=== PATIENT | male | born 1980 | race Caucasian/White ===

== ENCOUNTER → 2019-07-28 | Day surgery (SDC) | payer BC ==
[~2019-07-28] MED LIST: ALEVE220 MG PO; AZO BLADDER CO300 MG PO; B&O 60MG R/S 60 MG SUPP PR ONE; CEFTRIAXONE SOD 1 GM/NS 50 ML 50 ML IV ONE; DEXAMETHASONE SOD PHOS INJ 4 MG/ML VIAL ONE; FENTANYL CITRATE/PF 100MCG/2 ML INJ ONE; FISH OIL 1,0001 EAC2 PO; IOPAMIDOL 300MG/ML 50ML INFUS..BTL IV ONE; LIDOCAINE HCL 2% LOCAL INJ 5 ML SDV VIAL INJ ONE; LISINOPRIL10 MG PO; MIDAZOLAM HCL 2 MG/2 ML VIAL ONE; ONDANSETRON HCL INJ 2MG/ML 2ML 2 MG/ML VIAL ONE; OXYBUTYNIN CHLOR5 MG PO; PROPOFOL IV EMULSION 10 MG/ML 20 ML VIAL ONE; SEVOFLURANE INHAL SOLN 250 ML PEN BTL ONE
--- OUTSIDE RECORDS SUMMARY | 2019-07-28 13:42 | XMS REPORT ---
Author Author [facility] Address Unknown Phone Unavailable Care Team Providers Care Water Main Installer Helper Name Role Phone Unavailable Unavailable Problems This patient has no known problems. Allergies, Adverse Reactions, Alerts This patient has no known allergies or adverse reactions. Medications This patient has no known medications.
[2019-07-28 14:21] LABS: BASOPHILS # (AUTO) 0.1 (0.0-0.1); BASOPHILS % 0.6 % (0.0-1.0); EOSINOPHILS # (AUTO) 0.1 (0.0-0.4); EOSINOPHILS % 0.5 % (0.0-6.0); HEMATOCRIT 45.8 % (38.2-49.6); HEMOGLOBIN 14.9 g/dL (14.0-18.0); LYMPHOCYTES # (AUTO) 1.3 (1.0-3.2); LYMPHOCYTES % 13.1 % (18.0-39.1); MEAN CORPUSCULAR HEMOGLOBIN 27.8 pg (28-32); MEAN CORPUSCULAR HGB CONC 32.5 g/dL (31-35); MEAN CORPUSCULAR VOLUME 85.4 fL (81-99); MONOCYTES % 9.5 % (4.4-11.3); NEUTROPHILS # (AUTO) 7.6 (2.1-6.9); NEUTROPHILS % 75.5 % (38.7-80.0); PLATELET COUNT 238 x10e3/uL (140-360); RED BLOOD COUNT 5.36 x10e6/uL (4.3-5.7); RED CELL DISTRIBUTION WIDTH 13.3 % (11.7-14.4)
[2019-07-28 14:40] LABS: ALANINE AMINOTRANSFERASE 49 IU/L (0-55); ALBUMIN 4.5 g/dL (3.5-5.0); ALBUMIN/GLOBULIN RATIO 1.5 (0.8-2.0); ALKALINE PHOSPHATASE 88 IU/L (40-150); ANION GAP 12.2 mmol/L (8-16); BLOOD UREA NITROGEN 21 mg/dL (7-26); BUN/CREATININE RATIO 17 (6-25); CALCIUM 9.3 mg/dL (8.4-10.2); CARBON DIOXIDE 25 mmol/L (22-29); CHLORIDE 106 mmol/L (98-107); CREATININE, SERUM 1.21 mg/dL (0.72-1.25); EST GLOMERULAR FILTRATION RATE > 60 ML/MIN (60-); GLUCOSE 88 mg/dL (74-118); POTASSIUM 4.2 mmol/L (3.5-5.1); SODIUM 139 mmol/L (136-145)
[2019-07-28 18:25] VITALS: BP 138/84
--- NOTE | 2019-08-20 21:07 | Operative Report ---
DATE OF PROCEDURE: 07/28/2019 SURGEON: Prosper Drake MD PREOPERATIVE DIAGNOSES: 1. Right ureter ureterolithiasis. 2. Right hydronephrosis due to stone. 3. Renal colic. POSTOPERATIVE DIAGNOSES: 1. Right ureter ureterolithiasis. 2. Right hydronephrosis due to stone. 3. Renal colic. 4. Bladder lesion. OPERATIONS PERFORMED: 1. Cystourethroscopy with bilateral ureteral catheterization and retrograde ureteropyelography (separate procedure performed for the renal colic). 2. Interpretation of retrograde ureteropyelography. 3. Supervision of fluoroscopy, no radiologist present. 4. Cystourethroscopy with ureteral stone manipulation without extraction (separate procedure performed to push the ureteral stone into the renal pelvis for better ESWL results). 5. Urological services with supervision and interpretation for stone manipulation procedure. 6. Cystourethroscopy with insertion of right indwelling ureteral stent (separate procedure performed to relieve the hydronephrosis). 7. Cystourethroscopy with transurethral resection of small bladder lesion (separate procedure performed for the bladder lesion. ANESTHESIA: General. COMPLICATIONS: None. CLINICAL SUMMARY: Edmar Manjarrez is a 39-year-old man with obstructive uropathy. He was brought for the above procedures. He is aware of the risks of bleeding, infection, injury to adjacent structures, need for additional procedures, and elected to proceed. OPERATIVE PROCEDURE IN DETAIL: Informed consent was verified. Edmar Manjarrez was properly identified, taken to the operating room, placed on the cystoscopy table in supine position. Anesthesia was uneventfully begun. The patient was then carefully gently repositioned in dorsal lithotomy position. All pressure points well padded. His genitalia were prepared and draped in usual sterile fashion. The cystoscope sheath with the visual obturator in place was atraumatically inserted into the patient's urethra, it was guided down the unremarkable urethra through the prostate bed, which exhibited an elevated median bar. We entered the patient's bladder, where there was sand noted within the bladder. This sand was evacuated. There were no residual stones identified in the bladder after evacuation of the sand, but there was a small lesion lateral to the right ureteral orifice. Cold cup biopsy forceps were utilized to resect the lesion, the base of it was fulgurated with a Bugbee electrode. Ureteral catheter was used to cannulate each ureter and retrograde pyelograms were performed. Interpretation of retrograde ureteropyelography contrast was instilled in a retrograde fashion bilaterally. The left side was unremarkable. There were no tumors, no stones, no diverticula. The right side exhibited a proximal ureteral stone, that was mildly calcified that was visually obstructing. The ureteral catheter was brought up into the right ureter and guided to the level of the patient's stone, we gently tapped on the stone, this dislodged the stone into the renal pelvis. Guidewire was left in place. With cystoscopic fluoroscopic guidance, the right-sided indwelling ureteral stent was then placed to coil the patient's kidney as well as the patient's bladder. The retaining suture was cut short. The patient's bladder was drained and the cystoscope was withdrawn. A belladonna and opium suppository were placed revealing a 20 g prostate that is smooth, nonfluctuant without any nodules. The patient was then uneventfully reversed from anesthesia and taken to recovery room in stable condition. There were no complications to the procedure. The patient tolerated the procedure well. PLANS: Plans will be to return the patient to the operating room for a right ESWL. Prosper Drake MD [place]/LATRICIA /[id number]
== END | disposition home or self-care (01) ==
LOC: OR 13:40
PROVIDERS: ATTEND Urology
DX: N13.2 Hydronephrosis with renal and ureteral calculous obstruction (principal); N17.9 Acute kidney failure, unspecified; N32.9 Bladder disorder, unspecified; R35.1 Nocturia; R80.9 Proteinuria, unspecified; Q55.22 Retractile testis; I10 Essential (primary) hypertension; E66.9 Obesity, unspecified; Z68.34 Body mass index [BMI] 34.0-34.9, adult; Z80.52 Family history of malignant neoplasm of bladder; Z80.51 Family history of malignant neoplasm of kidney
CPT/HCPCS: 36415; 52234; 52330; 52332; 74420; 80053; 83970; 84550; 85025; 88305; C1758; C2617; J0696; J1100; J2001; J2250; J2405; J2704; J3010; Q9967

== ENCOUNTER → 2019-08-23 | Day surgery (SDC) | payer BC ==
[~2019-08-23] MED LIST changes: +BACITRACIN ZINC 15 GM OINT ONE; +BUPIVACAINE HCL 0.5% INJ 30 ML VIAL INJ ONE; +CEFAZOLIN SOD 1 GM/NS 50ML 100 ML IV ONE; -CEFTRIAXONE SOD 1 GM/NS 50 ML 50 ML IV ONE; +KETOROLAC TROMETHAMINE 30 MG/ML VIAL ONE
[2019-08-23 14:50] VITALS: BP 120/77
--- NOTE | 2019-08-24 02:35 | Operative Report ---
DATE OF PROCEDURE: 08/23/2019 SURGEON: Prosper Drake MD PREOPERATIVE DIAGNOSES: 1. Right urolithiasis. 2. Right indwelling ureteral stent. 3. Desires permanent sterilization utilizing the same surgery. POSTOPERATIVE DIAGNOSES: 1. Desires sterilization, that is permanent. 2. Right ureterolithiasis. 3. Right nephrolithiasis. 4. Indwelling ureteral stent. OPERATIONS PERFORMED: 1. Bilateral vasectomy. 2. Regional nerve block (separate procedure performed for pain control following the vasectomy, not required for actual performance of surgery, which was done under general anesthesia). 3. Cystourethroscopy with complicated removal of right indwelling ureteral stent (separate procedure performed for the diagnosis of stent, done with separate scope). 4. Right semi-rigid ureteroscopy with holmium laser lithotripsy and insertion of stent (separate procedure performed for the right obstructing ureterolithiasis). 5. Right flexible ureteroscopy with holmium laser lithotripsy (separate procedure performed for the right nephrolithiasis). 6. Radiological services with supervision and interpretation of ureteroscopy. 7. Interpretation of retrograde ureteropyelography. 8. Supervision of fluoroscopy, no radiologist present. ANESTHESIA: General. COMPLICATIONS: None. CLINICAL SUMMARY: Edmar Manjarrez is a 39-year-old man with a large stone burden that was obstructing, underwent ureteral stenting followed by ESWL, was brought to the operating room today for the next stone procedure. The patient preoperatively desired to proceed with vasectomy. His concurs. We discussed risks, benefits, and alternatives of the permanent nature of vasectomy, potential for chronic pain in the future. The patient elected to proceed. OPERATIVE PROCEDURE IN DETAIL: Informed consent was verified. Edmar Manjarrez was properly identified, taken to the operating room, and placed on the cystoscopy table in supine position. Anesthesia was uneventfully begun. The patient was then carefully and gently repositioned in dorsal lithotomy position with all pressure points well padded. His genitalia were shaved, prepared, and draped in usual sterile fashion. The left vas deferens was isolated. The vasectomy forceps was utilized to crowell the skin and sporadic. We isolated the vas deferens. We grasped them with the specialized vasal forceps. We isolated the vas further, then utilized Marcaine to infiltrate cephalad to the point of dissection. This regional nerve block was done for postoperative pain control and not required for the actual performance of surgery, which was done under general anesthesia. We then isolated the vas. We utilized the needle-tip Bovie to score the mucosa. We placed 2 hemoclips on each stump and resected a 2 cm segment of vas deferens. Copious irrigation was performed. We verified hemostasis. The testis was pulled down to its normal anatomical position. The Marcaine was utilized to infiltrate circumferentially around the incision. An identical maneuver was performed on the right hand side with similar results. A 22.5-Fijian cystoscope sheath with the visual obturator in place was atraumatically inserted into the patient's urethra, was guided unremarkably urethra through normal sphincteric region, through the prostate, eventually exhibited very early BPH and into the patient's bladder. We identified a stent emerging from the right ureteral orifice, which was very finely encrusted. There was an area of bladder mucosa that was healing just lateral to the ureteral orifice from the previous bladder tumor that was extracted. A guidewire was then placed into the right ureter and guided to the level of the patient's kidney. The stent was then grasped, completely removed, and discarded. A semi-rigid ureteroscope was then brought up alongside the guidewire and up into the right ureter at the mid ureter. We identified an obstructing glucose stones. Holmium laser lithotripsy was then re-utilized to pulverize these stones until the ureter was free of any stones except for some fine sand. A secondary guidewire was utilized. A flexible ureteroscope was then placed over the guidewire and guided to the level of the patient's kidney. Panendoscopy revealed a severe amount of small stone material remaining, so these stones were significantly sized. We utilized the holmium laser to pulverize these stones into smaller fragments that should be passable. This was actually an extensive procedure to the shear number of stones left over from the ESWL of the large stones the patient had originally. We copiously irrigated to ensure all the sand was mobile and there were no sick significantly sized stones remained. We carefully re-examined the ureter as we exited with the flexible ureteroscope. It exhibited no suspicious lesions. With cystoscopic and fluoroscopic guidance, a right-sided indwelling ureteral stent was then placed, it was coiled in the patient's kidneys as well as the patient's bladder. The retaining suture was cut short. Interpretation of retrograde ureteropyelography contrast was instilled in retrograde fashion bilaterally. The right side exhibited some chronic appearing fullness. There was mild calyceal blunting. The stent was in good position, coiled in the patient's kidney as well as the patient's bladder at the end of the case. The patient's bladder was drained and cystoscope was withdrawn. Belladonna and opium suppository were placed revealing a 20 to 25 g prostate, smooth and non-fluctuant without any nodules. The patient was then uneventfully reversed from anesthesia and taken to recovery room in stable condition. Explicit postop instructions were given. We will plan on returning the patient to the operating room in several weeks to perform right ureteroscopy with removal of the stent and hopefully we can render the patient stent free and stone free at that time. MD VAHID Salguero/LATRICIA /[id number]
== END | disposition home or self-care (01) ==
LOC: OR 10:00
PROVIDERS: ATTEND Urology
DX: N20.1 Calculus of ureter (principal); Z30.2 Encounter for sterilization; N20.0 Calculus of kidney; D41.4 Neoplasm of uncertain behavior of bladder; N13.30 Unspecified hydronephrosis; N40.0 Benign prostatic hyperplasia without lower urinary tract symptoms; R35.1 Nocturia; R80.9 Proteinuria, unspecified; E66.9 Obesity, unspecified; Z46.6 Encounter for fitting and adjustment of urinary device; I10 Essential (primary) hypertension; Z80.52 Family history of malignant neoplasm of bladder; Z80.51 Family history of malignant neoplasm of kidney
CPT/HCPCS: 52356; 55250; 74420; 88300; 88302; C1769; C2617; J0690; J1100; J1885; J2001; J2250; J2405; J2704; J3010; Q9967; 88304

== ENCOUNTER → 2019-09-08 | Day surgery (SDC) | payer BC ==
[~2019-09-08] MED LIST changes: -BACITRACIN ZINC 15 GM OINT ONE; -BUPIVACAINE HCL 0.5% INJ 30 ML VIAL INJ ONE; -CEFAZOLIN SOD 1 GM/NS 50ML 100 ML IV ONE; +CEFTRIAXONE SOD 1 GM/NS 50 ML 50 ML IV ONE; +GENTAMICIN 80MG/NS 100 ML 200 ML IV ONE; -KETOROLAC TROMETHAMINE 30 MG/ML VIAL ONE
--- OUTSIDE RECORDS SUMMARY | 2019-09-08 10:11 | XMS REPORT | Summary of Care ---
Author Author [facility] Organization [facility] Address Unknown Phone Unavailable Care Team Providers Care Transformer Maker Name Role Phone Rao Carranza MD PCP Reason for Visit * Reason Comments Assessment LOW BACK PAIN(WAS ANA ROSA PT) Encounter Details Care Team Description Date Type Department Rao Carranza MD [address] [place] [address] Assessment (LOW BACK PAIN(MAC CARRANZA PT)) 08/30/2019 Telephone [facility]-[address] [id number] Allergies No Known Allergiesdocumented as of this encounter (statuses as of 08/30/2019) Medications End Date Status Medication Sig Dispensed Refills Start Date Active DOCOSAHEXANOIC ACID/EPA Take 2 Tabs 0 (FISH OIL ORAL) by mouth daily. Active ibuprofen 800 mg tablet TK 1 T PO TID 0 FOR 7 DAYS 8 PRF PAIN Active lisinopril 20 mg TAKE 1 TAB BY 90 tablet 3 tabletIndications: MOUTH DAILY. 9 Essential hypertension FOR BLOOD PRESSURE documented as of this encounter (statuses as of 08/30/2019) Active Problems Patient Care Coordination Note Hypertension (High Blood Pressure) Plan of Care My Hypertension Goals are the following: ? Strive for a normal blood pressure of less than 140/90 ? Cholesterol- LDL ( Bad cholesterol )- less than 130 (if I have diabetes and heart disease goal is less than 70) ? Total Cholesterol- less than 200 ? Lose weight if overweight or obese and follow the Weight Loss Care Plan ? Stop smoking and avoid second hand smoke My Hypertension Care Plan includes the following: ? Check and record blood pressure at least once a week and write results on blood pressure log ? Exercise at least 30 minutes a day 5 days a week. This can be in three 10 minute intervals ? Maintain a healthy weight ? Follow a DASH diet (Dietary Approaches to Stop Hypertension) o Eat a diet rich in fruits, vegetables, and low fat dairy products and low in saturated and total fat o Reduce dietary sodium to below 1500mg per day o Limit alcohol to two drinks per day for most men and one drink per day for most women and development coach weight men ? If I am a smoker, stop smoking ? Manage stress by identifying three ways to reduce stress ? [employer] ([email or web address]) is an online tool that will allow me to review lab results and portions of my health record, and to communicate with healthcare providers as needed. If I do not have a [employer] account, I will discuss this with my healthcare team Problem Noted Date LFTs abnormal 11/29/2009 Overview: ICD10 Diagnosis Term Manufacturing Tech Utility High blood triglycerides 11/29/2009 Essential hypertension, benign documented as of this encounter (statuses as of 08/30/2019) Immunizations Name Administration Dates Next Due Tdap 03/14/2013 documented as of this encounter Social History Date Tobacco Use Types Packs/Day Years Used Never Smoker Smokeless Tobacco: Never Used Drinks/Week oz/Week Comments Alcohol Use rare Yes Sex Assigned at Date Recorded Not on file Industry Job Start Date Occupation Not on file Not on file Not on file Travel End Travel History Travel Start No recent travel history available. documented as of this encounter Last Filed Vital Signs Not on filedocumented in this encounter Plan of Treatment Health Maintenance Due Date Last Done Comments VARICELLA VACCINES (1 of 1982 2 - 2-dose childhood series) INFLUENZA VACCINE (#1) 2019 DTaP,Tdap,and Td Vaccines 03/14/2023 03/14/2013 (2 - Td) PNEUMOCOCCAL 0-64 YEARS Aged Out No longer eligible based COMBINED SERIES on patient's age to complete this topic documented as of this encounter Results Not on filedocumented in this encounter Insurance Type Payer Benefit Subscriber ID Effective Phone Address Plan / Dates Group PPO/POS BCBS OF [place] BCBS OF [id number] 2005-P [phone] [address] [facility] [id number] [place] OF [place] [id number] documented as of this encounter
--- NOTE | 2019-09-08 11:00 | Diagnostic Imaging Report ---
Exam: KUB - 2 views Indication: Preoperative Comparison: KUB 08/08/2019 Findings: Right internal nephroureteral stent in place. Previously seen dominant right renal calculi are no longer visualized status post retrograde pyelogram of 08/23/2019. No new radiographically apparent renal calculi. Nonobstructive bowel gas pattern. No free air. No acute osseous injury. Impression: Right internal nephroureteral stent in place. Previously seen right lower pole renal calculi are no longer visualized. Signed by: Pastor Moore MD on 09/08/2019 10:57 AM
[2019-09-08 15:00] VITALS: BP 138/78
--- NOTE | 2019-09-09 14:26 | Operative Report ---
DATE OF PROCEDURE: 09/08/2019 SURGEON: Prosper Drake MD PREOPERATIVE DIAGNOSES: 1. Right ureterolithiasis. 2. Right nephrolithiasis. 3. Right indwelling ureteral stent. 4. Right hydronephrosis. POSTOPERATIVE DIAGNOSES: 1. Right ureterolithiasis. 2. Right nephrolithiasis. 3. Right indwelling ureteral stent. 4. Right hydronephrosis. TEST PERFORMED: Note, these were all staged procedures as part of multi-staged and multi-step process in managing the patient's urolithiasis. 1. Cystourethroscopy with complicated removal of right indwelling ureteral stent (separate procedure performed with separate scope for the diagnosis of stent). 2. Right ureteroscopy with stone manipulation and extraction (separate procedure performed for the right ureterolithiasis). 3. Right repeated ureteral pyeloscopy with stone manipulation and extraction (separate procedure performed for countless stones that remained in the right kidney. 4. Urological services with supervision and interpretation of ureteroscopy, no radiologist present. 5. Interpretation of retrograde ureteropyelography, no radiologist present. 6. Supervision of fluoroscopy, no radiologist present. 7. Cystourethroscopy with insertion of right indwelling ureteral stent (separate procedure performed to relieve the hydronephrosis). ANESTHESIA: General. COMPLICATIONS: None. CLINICAL: Edmar Manjarrez is a 39-year-old man with a history of extensive urolithiasis. The patient's father has a history of bladder cancer as well as cystic renal abnormalities, required nephrectomy. 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 The patient is brought to the operating room in hopes of rendering him stone free. He is aware of the risks of bleeding, infection, injury to adjacent structures, need for additional procedures and elected to proceed. This procedure is not elective. This procedure is done during the COVID-19 crisis due to the fact that the patient has persistent pain and a kidney stone with potential to increase and cause further deterioration of the patient's right kidney function. Preservation of this kidney function is requiring us to perform multiple procedures on this massive stone in order to be able to clear it so that the patient's kidney may be rehabilitated and hopefully prevent loss of this kidney. The patient understands the risk of coronavirus infection caused by leaving his house is outweighed by the risk of damage to and deteriorations of his left kidney. He also wants to proceed and be one step closer to eliminating the need for his stent. OPERATIVE PROCEDURE IN DETAIL: Informed consent was verified. Edmar Manjarrez was properly identified and taken to the operating room, placed on the cystoscopy table in supine position. Anesthesia was uneventfully begun. The patient was then carefully, gently repositioned in the dorsal lithotomy position. All pressure points were well padded. His genitalia were prepared and draped in usual sterile fashion. The cystoscope sheath with the visual obturator in place was atraumatically inserted into the patient's urethra, was guided unremarkably urethra through normal sphincteric region, through the normal prostate bed, into the patient's normal bladder. Panendoscopy revealed near-complete healing of the prior area where the bladder tumor was resected. There was a stent emerging in the right ureteral orifice with minimal erythema around there. A guidewire was then placed into the right ureter and guided to the level of the patient's kidney. The stent was grasped completely, removed, and discarded. Semi-rigid ureteroscopy was then performed. The semi-rigid ureteroscope was then inserted atraumatically alongside the guidewire into the right ureter, we identified stones. The stones were grasped with Nitinol tipless basket and extracted. Over the guidewire, the flexible ureteroscope was then placed and guided to the patient's proximal collecting system. We identified numerous stones. We then placed the flexible ureteroscopy sheath to avoid traumatizing the ureter with multiple passes of the ureteroscope. We then made countless passes of the ureteroscope each time grasping one or two stone fragments until we extracted all significantly sized stone fragments that could be visualized within the kidney on careful endoscopy. Fine sand remained and it was irrigated to loosen it from the mucosa, so they may pass. We carefully re-examined the ureter as we exited. No stones remained. With cystoscopic and fluoroscopic guidance, a right-sided indwelling ureteral stent was then placed it was coiled in the patient's kidneys as well as the patient's bladder. The retaining suture was left long and taped to the patient's penis. A belladonna and opium suppository were placed revealing a 25 g prostate, smooth, nonfluctuant without any nodules and the patient was uneventfully reversed from anesthesia and taken to recovery room in stable condition. Interpretation of retrograde ureteropyelography contrast was instilled in retrograde fashion bilaterally. Contrast was instilled in retrograde fashion on the right- hand side. There was chronic appearing fullness of the collecting system on the right-hand side, but it was mild. There were some filling defects that could be noted within the kidney with these all proved to be stones we extracted. Then, the stent was in good position, coiled the patient's kidney as well as the patient's bladder at the end of the case. There were no complications to the procedure. The patient tolerated the procedure well. Estimated blood loss was minimal. Numerous stones were sent to the lab for chemical analysis. PLAN: 1. We will follow the patient up in 2-3 weeks to remove his stent in the office. 2. Metabolic stone workup is must, following the next visit. We will pursue 24 hour urine testing and metabolic stone risk profile and hopefully preventing future urolithiasis. 3. Ongoing followup is needed for the patient's mild bladder cancer history. He will need another cystoscopy in approximately three months to ensure he remains tumor free. Subsequent cystoscopies every three months basis for the first two years, every six months basis and for the following three years, every year for life will be pursued. 4. Consideration will be given to performing a nuclear medicine renogram in order to evaluate renal function and evaluate for any scarring or damage due to this extensive nephrolithiasis that has required numerous procedures. Prosper Drake MD [place]/LATRICIA /[id number] KATIE
== END | disposition home or self-care (01) ==
LOC: OR 10:09
PROVIDERS: ATTEND Urology
DX: N20.1 Calculus of ureter (principal); N20.0 Calculus of kidney; N13.30 Unspecified hydronephrosis; E66.9 Obesity, unspecified; R35.1 Nocturia; R80.9 Proteinuria, unspecified; I10 Essential (primary) hypertension; Z46.6 Encounter for fitting and adjustment of urinary device; Z68.35 Body mass index [BMI] 35.0-35.9, adult; Z85.51 Personal history of malignant neoplasm of bladder; Z80.51 Family history of malignant neoplasm of kidney; Z80.52 Family history of malignant neoplasm of bladder; Z84.1 Family history of disorders of kidney and ureter
CPT/HCPCS: 52332; 52352; 74018; 74420; 88300; C1766; C1769; C2617; J0696; J1100; J1580; J2001; J2250; J2405; J2704; J3010; Q9967

== ENCOUNTER → 2019-10-05 | Outpatient (CLI) | payer BC ==
[~2019-10-05] MED LIST changes: -B&O 60MG R/S 60 MG SUPP PR ONE; -CEFTRIAXONE SOD 1 GM/NS 50 ML 50 ML IV ONE; -DEXAMETHASONE SOD PHOS INJ 4 MG/ML VIAL ONE; -FENTANYL CITRATE/PF 100MCG/2 ML INJ ONE; -GENTAMICIN 80MG/NS 100 ML 200 ML IV ONE; -IOPAMIDOL 300MG/ML 50ML INFUS..BTL IV ONE; -LIDOCAINE HCL 2% LOCAL INJ 5 ML SDV VIAL INJ ONE; -MIDAZOLAM HCL 2 MG/2 ML VIAL ONE; -ONDANSETRON HCL INJ 2MG/ML 2ML 2 MG/ML VIAL ONE; -PROPOFOL IV EMULSION 10 MG/ML 20 ML VIAL ONE; -SEVOFLURANE INHAL SOLN 250 ML PEN BTL ONE
--- NOTE | 2019-10-05 14:14 | Diagnostic Imaging Report ---
Exam: KUB - 2 views Indication: Renal calculus Comparison: KUB of 09/08/2019 Findings: No radiographically apparent renal calculi. Nonobstructive bowel gas pattern. No free air. No acute osseous injury. Impression: No radiographically apparent renal calculi. Signed by: Pastor Moore MD on 10/05/2019 2:10 PM
--- NOTE | 2019-10-05 21:52 | Diagnostic Imaging Report ---
Renal Scan Reason for exam: 39 M with renal calculus and hydronephrosis. Right flank pain x 2 months. Radiopharmaceutical: Tc-99m MAG3 10.1 mCi IV right hand Report: After administration of the radiopharmaceutical, dynamic images of the kidneys were obtained through 40 minutes. LEFT KIDNEY: Perfusion is prompt. The left kidney has a normal reniform shape. Extraction of tracer from the blood pool is normal. Clearance of tracer from the renal parenchyma is prompt. The pelvicaliceal system is not dilated. There is no significant increase in pooling of tracer within the pelvicaliceal system. Drainage of tracer from the pelvicaliceal system is normal. No stasis of tracer is seen in the left ureter. RIGHT KIDNEY: Perfusion is prompt. The kidney has a normal reniform shape. The right kidney is visually smaller than the left kidney. Extraction of tracer from the blood pool is normal. Clearance of tracer from the renal parenchyma is prompt. The pelvicaliceal system is not dilated . There is no significant increase in pooling of tracer within the pelvicaliceal system. Drainage of tracer from the pelvicaliceal study is normal. No stasis of tracer is seen in the right ureter. DIFFERENTIAL RENAL FUNCTION: Left kidney 57% and right kidney 43% (normal 43-57%. Impression: 1. The function of the left kidney is generally normal. No hydronephrosis is present. No obstruction of the renal collecting system is present. 2. The function of the right kidney is generally normal. The right kidney is smaller than the left kidney although no cortical scarring is apparent. The smaller size compared to the left kidney accounts for the differential renal function of 43%. No hydronephrosis is present. No obstruction of the renal collecting system is present. Signed by: Dr. Bisi Borden M.D. on 10/05/2019 9:49 PM
== END ==
LOC: NM 13:27
PROVIDERS: ATTEND Urology
DX: N20.0 Calculus of kidney (principal); N13.30 Unspecified hydronephrosis
CPT/HCPCS: 74018; 78707; A9562

== ENCOUNTER → 2019-12-22 | Day surgery (SDC) | payer BC ==
[~2019-12-22] MED LIST changes: +B&O 60MG R/S 60 MG SUPP PR ONE; +CEFTRIAXONE SOD 1 GM/NS 50 ML 50 ML IV ONE; +ETOMIDATE 2 MG/ML 10 ML INJ IV ONE; +IOPAMIDOL 300MG/ML 50ML INFUS..BTL IV ONE; +LIDOCAINE HCL 2% LOCAL INJ 5 ML SDV VIAL INJ ONE; +ONDANSETRON HCL INJ 2MG/ML 2ML 2 MG/ML VIAL ONE; +PROPOFOL IV EMULSION 10 MG/ML 20 ML VIAL ONE; +SEVOFLURANE INHAL SOLN 250 ML PEN BTL ONE
[2019-12-22 11:35] VITALS: BP 129/72
--- NOTE | 2019-12-25 06:46 | Operative Report ---
DATE OF PROCEDURE: 12/22/2019 SURGEON: Prosper Drake MD PREOPERATIVE DIAGNOSIS: Bladder cancer. POSTOPERATIVE DIAGNOSIS: Bladder cancer. OPERATIONS PERFORMED: Note these all procedures that were staged and not related to the prior stone surgery. 1. Cystourethroscopy with bilateral ureteral catheterization and retrograde ureteropyelography. 2. Interpretation of retrograde ureteropyelography. 3. Supervision of fluoroscopy, no radiologist present. ANESTHESIA: General. COMPLICATIONS: None. CLINICAL SUMMARY: Edmar Manjarrez is a 39-year-old man, who underwent stone procedure, was found to have a bladder cancer lateral to the right ureteral orifice. This was resected. He is brought for evaluation and surveillance. He is aware of the risks of bleeding, infection, injury to adjacent structures, need for additional procedures and elected to proceed. OPERATIVE PROCEDURE IN DETAIL: Informed consent was verified. Edmar Manjarrez was properly identified, taken to the operating room, placed on the cystoscopy table in supine position. Anesthesia was uneventfully begun. The patient was then carefully and gently repositioned in dorsal lithotomy position with all pressure points well padded. His genitalia were prepared and draped in usual fashion. The cystoscope sheath with the visual obturator in place was atraumatically inserted into the patient's urethra, it was guided unremarkable urethra through the prostate bed to relatively unremarkable and into the patient's bladder. Panendoscopy revealed scarring lateral to the right ureteral orifice. No suspicious mucosal lesions were identified. An 8-Divehi catheter was used to cannulate each ureter and retrograde ureteropyelograms were performed. Interpretation of retrograde ureteropyelography contrast was instilled in retrograde fashion bilaterally. There were no tumors, no stones, and no diverticula. Unobstructed drainage was observed bilaterally fluoroscopically. The patient's bladder was drained. Cystoscope was withdrawn. Belladonna and opium suppository were placed revealing a 20 g prostate, that smooth and non-fluctuant without any nodules. The patient was uneventfully reversed from anesthesia and taken to recovery room in stable condition. There were no complications to the procedure. He tolerated the procedure well. Explicit postop instructions were given. We will follow the patient up in the office. Prosper Drake MD [place]/[facility] /[id number]
== END | disposition home or self-care (01) ==
LOC: OR 08:03
PROVIDERS: ATTEND Urology
DX: C67.9 Malignant neoplasm of bladder, unspecified (principal); N20.0 Calculus of kidney; I10 Essential (primary) hypertension; Z01.810 Encounter for preprocedural cardiovascular examination; Z01.812 Encounter for preprocedural laboratory examination; Z11.59 Encounter for screening for other viral diseases
CPT/HCPCS: 74420; 93005; C1758; J0696; J2001; J2405; U0002

== ENCOUNTER → 2020-12-12 | Outpatient (CLI) | payer BC ==
[~2020-12-12] MED LIST changes: -B&O 60MG R/S 60 MG SUPP PR ONE; -CEFTRIAXONE SOD 1 GM/NS 50 ML 50 ML IV ONE; -ETOMIDATE 2 MG/ML 10 ML INJ IV ONE; -IOPAMIDOL 300MG/ML 50ML INFUS..BTL IV ONE; -LIDOCAINE HCL 2% LOCAL INJ 5 ML SDV VIAL INJ ONE; -ONDANSETRON HCL INJ 2MG/ML 2ML 2 MG/ML VIAL ONE; -PROPOFOL IV EMULSION 10 MG/ML 20 ML VIAL ONE; -SEVOFLURANE INHAL SOLN 250 ML PEN BTL ONE
== END ==
LOC: RAD 15:53
PROVIDERS: ATTEND Urology
DX: N20.0 Calculus of kidney (principal)
CPT/HCPCS: 74018